=== PATIENT | female | born 1990 | race Caucasian/White ===

== ENCOUNTER 2016-05-31 10:30 | Day surgery (SDC) | payer MEDICAID, OTHER ==
[2016-05-31] MEDS ORDERED: SCOPOLAMINE PATCH TOP ONE (10:42)
[2016-05-31] MEDS ORDERED: CELECOXIB 100 MG CAPSULE PO ONE (10:43)
[2016-05-31] MEDS ORDERED: LACTATED RINGERS 1,000 ML IV ONE ×2 (10:57→15:36)
[2016-05-31] MEDS ORDERED: PROPOFOL 200 MG/20 ML VIAL IVP ONE (15:30)
[2016-05-31] MEDS ORDERED: fentaNYL 100 MCG/2 ML VIAL IVP ONE (15:30)
[2016-05-31] MEDS ORDERED: ROCURONIUM 50 MG/5 ML VIAL IVP ONE (15:30)
[2016-05-31] MEDS ORDERED: ONDANSETRON 4 MG/2 ML VIAL IVP ONE (15:30)
[2016-05-31] MEDS ORDERED: NALOXONE 0.4 MG/ML VIAL IVP ONE (15:30)
[2016-05-31] MEDS ORDERED: DEXAMETHASONE 4 MG/ML VIAL IVP ONE (15:30)
[2016-05-31] MEDS ORDERED: MIDAZOLAM 2 MG/2 ML VIAL IVP ONE (15:30)
[2016-05-31] MEDS ORDERED: BUPIVACAINE 0.25%-EPI 1:200000 PF 30 ML VIAL SUBQ ONE (15:42)
[2016-05-31] MEDS: fentaNYL 100 MCG/2 ML VIAL ONE ×3 (16:22→16:34)
[2016-05-31] MEDS ORDERED: HYDROcod/ACETAM 5/325 MG TABLET ONE (17:16)
== END 2016-05-31 10:31 | disposition home or self-care (01) ==
PROC: 0UT74ZZ Resection of Bilateral Fallopian Tubes, Percutaneous Endoscopic Approach (ICD-10-PCS; principal; 2016-05-31 11:25)
DX: Z30.2 Encounter for sterilization (principal); Z91.040 Latex allergy status; Z80.3 Family history of malignant neoplasm of breast
CPT/HCPCS: 58661; 81025; A9270; J3490; J7120

== ENCOUNTER 2018-09-25 11:40 | Outpatient (CLI) | payer MEDICAID ==
[2018-09-25 13:36] LABS: H. PYLORIS ANTIGEN STL NEGATIVE (Negative)
== END 2018-09-25 23:59 | disposition home or self-care (01) ==
LOC: LAB.R 11:40
PROVIDERS: ATTEND Physician Assistant Medical
DX: K21.9 Gastro-esophageal reflux disease without esophagitis (principal)
CPT/HCPCS: 87338

== ENCOUNTER 2018-09-25 12:05 | Outpatient (CLI) | payer MEDICAID, OTHER ==
[2018-09-25 12:31] LABS: BASOPHILS % (AUTO) 0.8 %; EOSINOPHILS # (AUTO) 0.1 10^3/uL (0.0-0.7); EOSINOPHILS % (AUTO) 1.7 %; HGB - HEMOGLOBIN 14.6 g/dL (12.0-16.0); LYMPHOCYTES # (AUTO) 2.2 10^3/uL (1.5-3.5); LYMPHOCYTES % (AUTO) 34.9 %; MEAN CORPUSCULAR HEMOGLOBIN 29.7 pg (27.0-31.0); MEAN CORPUSCULAR HGB CONC 33.9 g/dL (32.0-36.0); MEAN CORPUSCULAR VOLUME 87.5 fL (81.0-99.0); MEAN PLATELET VOLUME 9.8 fL (7.9-10.8); MONOCYTES # (AUTO) 0.4 10^3/uL (0.0-1.0); MONOCYTES % (AUTO) 6.6 %; NEUTROPHILS # (AUTO) 3.5 10^3/uL (1.5-6.6); PLT - PLATELET COUNT 134 10^3/uL (130-450); RED BLOOD COUNT 4.91 10^6/uL (4.20-5.40); RED CELL DISTRIBUTION WIDTH 13.8 % (12.0-15.0); WHITE BLOOD COUNT 6.3 x10^3/uL (4.8-10.8)
[2018-09-25 13:30] LABS: ALBUMIN/GLOBULIN RATIO 1.3 (1.0-2.2); BILIRUBIN,TOTAL 0.6 mg/dL (0.2-1.0); CALCIUM 8.6 mg/dL (8.5-10.3); CREATININE 0.8 mg/dL (0.4-1.0); TOTAL PROTEIN 7.1 g/dL (6.7-8.2)
== END 2018-09-25 12:06 | disposition home or self-care (01) ==
LOC: LAB 12:05
PROVIDERS: ATTEND Physician Assistant Medical
DX: K21.9 Gastro-esophageal reflux disease without esophagitis (principal)
CPT/HCPCS: 36415; 80053; 82728; 83690; 85025; 87338

== ENCOUNTER 2018-10-31 16:46 | Outpatient (CLI) | payer MEDICAID | END 2018-10-31 16:47 | disposition home or self-care (01) | LOC: LAB 16:46 | PROVIDERS: ATTEND Physician Assistant Medical | DX: Z00.00 Encounter for general adult medical examination without abnormal findings (principal) | CPT/HCPCS: 36415; 84443 ==

== ENCOUNTER 2018-11-06 18:31 | Emergency (ER) | payer MEDICAID ==
[2018-11-06 18:39] VITALS: BP 132/91
[2018-11-06] MEDS ORDERED: predniSONE 20 MG TABLET PO STA (18:53)
--- NOTE | 2018-11-06 18:55 | ED Physician Documentation ---
PD HPI SKIN - Stated complaint Stated Complaint: ITCHING ALL OVER - Chief complaint Chief Complaint: Wound - History obtained from History obtained from: Patient - History of Present Illness Timing - onset: Today Timing - duration: Days (1) Timing - details: Gradual onset Pain level max: 0 Pain level now: 0 Location: Bodywide Quality / character: Itchy Improved by: Benadryl Worsened by (comment): COMMENT (nothing) Associated symptoms: No: Fever, Myalgias, Joint pain, Headache, Facial swelling, Dyspnea, Abd pain, N/V/D, Urinary sx Contributing factors: Unknown. No: Exposed to medication, Exposed to food, Exposed to soap / lotion, Exposed to Poison yumiko/oak, Insect bite /sting, Recent illness Recently seen: Not recently seen Review of Systems Constitutional: denies: Fever, Chills GI: denies: Vomiting, Diarrhea Skin: denies: Rash Musculoskeletal: denies: Neck pain, Back pain Neurologic: denies: Headache PD PAST MEDICAL HISTORY - Past Medical History Cardiovascular: None Respiratory: None Endocrine/Autoimmune: Other GI: None : None HEENT: None Psych: Anxiety Musculoskeletal: None Derm: None - Past Surgical History Past Surgical History: No - Present Medications Home Medications: Ambulatory Orders Medication Instructions Recorded Confirmed Acetaminophen [Pain Relief] 1,000 mg PO ONCE 05/31/16 05/31/16 Cetirizine [ZyrTEC] 10 mg PO DAILY PRN #30 tablet 11/06/18 predniSONE [Deltasone] 10 mg PO [id number] #42 tab 11/06/18 - Allergies Allergies/Adverse Reactions: Allergies Allergy/AdvReac Type Severity Reaction Status Date / Time Latex, Natural Rubber Allergy Rash Verified 11/06/18 18:39 - Social History Does the pt smoke?: No Smoking Status: Never smoker Does the pt drink ETOH?: No Does the pt have substance abuse?: No - Immunizations Immunizations are current?: Yes - POLST Patient has POLST: No PD ED PE NORMAL - Vitals Vital signs reviewed: Yes - General General: Alert and oriented X 3, No acute distress, Well developed/nourished - Neck Neck: Supple, no meningeal sign - Cardiac Cardiac: RRR - Respiratory Respiratory: No respiratory distress, Clear bilaterally - Derm Derm: Warm and dry, Other (Diffuse maculopapular exanthem patches. Some on the legs, some on the arms. No vesicles. No pustules. No tracts.) - Extremities Extremities: No edema - Neuro Neuro: Alert and oriented X 3 - Psych Psych: Normal mood, Normal affect Results - Vitals Vitals: Oxygen O2 Source Room air PD MEDICAL DECISION MAKING - ED course Complexity details: reviewed old records, considered differential, d/w patient ED course: Patient with what appears to be a dermatitis of unclear etiology. Will trial on steroids and see how she progresses. We will follow-up with her doctor for further care. I did check on her recent thyroid results per her request and those are normal. Patient counseled regarding signs and symptoms for which I believe and urgent re-evaluation would be necessary. Patient with good understanding of and agreement to plan and is comfortable going home at this time This document was made in part using voice recognition software. While efforts are made to proofread this document, sound alike and grammatical errors may occur. Departure - Departure Disposition: 01 Home, Self Care Clinical Impression: Dermatitis Condition: Good Instructions: ED Dermatitis Non Specific Rash Follow-Up: Zoraida Palm PA-C [Primary Care Provider] - Within 1 week Prescriptions: Cetirizine [ZyrTEC] 10 mg PO DAILY PRN #30 tablet PRN Reason: Allergy Symptoms predniSONE [Deltasone] 10 mg PO [id number] #42 tab Comments: The cause of your symptoms is unclear. Return if you worsen. Follow-up with your doctor for further care. Your thyroid tests were normal from last week. Discharge Date/Time: 11/06/18 19:10
== END 2018-11-06 19:10 | disposition home or self-care (01) ==
LOC: ED 18:31
DX: L30.9 Dermatitis, unspecified (principal)
CPT/HCPCS: 99283; J7512

== ENCOUNTER 2019-01-29 17:50 | Outpatient (CLI) | payer MEDICAID | END 2019-01-29 17:51 | disposition home or self-care (01) | LOC: LAB 17:50 | PROVIDERS: ATTEND Physician Assistant Medical | DX: E03.9 Hypothyroidism, unspecified (principal) | CPT/HCPCS: 36415; 84443 ==

== ENCOUNTER 2019-04-24 08:00 | Outpatient (CLI) | payer MEDICAID | END 2019-04-24 23:59 | disposition home or self-care (01) | LOC: LAB.WCP 08:00 | PROVIDERS: ATTEND Physician Assistant Medical | DX: E03.9 Hypothyroidism, unspecified (principal) | CPT/HCPCS: 36415; 84443 ==

== ENCOUNTER 2019-05-05 16:30 | Outpatient (CLI) | payer MEDICAID | END 2019-05-05 23:59 | disposition home or self-care (01) | LOC: LAB.R 16:30 | PROVIDERS: ATTEND Physician Assistant Medical | DX: R30.0 Dysuria (principal) | CPT/HCPCS: 87077; 87086 ==

== ENCOUNTER 2021-04-13 08:00 | Outpatient (CLI) | payer MEDICAID | END 2021-04-13 23:59 | disposition home or self-care (01) | LOC: LAB.N 08:00 | PROVIDERS: ATTEND Family Medicine | DX: N39.0 Urinary tract infection, site not specified (principal) | CPT/HCPCS: 87086; 87181 ==

== ENCOUNTER 2021-08-11 11:17 | Outpatient (CLI) | payer MEDICAID ==
[2021-08-11 11:34] LABS: BASOPHILS # (AUTO) 0.1 10^3/uL (0.0-0.1); BASOPHILS % (AUTO) 1.1 %; EOSINOPHILS # (AUTO) 0.1 10^3/uL (0.0-0.7); EOSINOPHILS % (AUTO) 1.2 %; HCT - HEMATOCRIT 42.9 % (37.0-47.0); HGB - HEMOGLOBIN 14.7 g/dL (12.0-16.0); LYMPHOCYTES # (AUTO) 2.8 10^3/uL (1.5-3.5); LYMPHOCYTES % (AUTO) 41.3 %; MEAN CORPUSCULAR HEMOGLOBIN 30.1 pg (27.0-31.0); MEAN CORPUSCULAR HGB CONC 34.3 g/dL (32.0-36.0); MEAN CORPUSCULAR VOLUME 87.7 fL (81.0-99.0); MEAN PLATELET VOLUME 11.7 fL (7.9-10.8); MONOCYTES # (AUTO) 0.6 10^3/uL (0.0-1.0); MONOCYTES % (AUTO) 8.4 %; NEUTROPHILS # (AUTO) 3.2 10^3/uL (1.5-6.6); NEUTROPHILS % (AUTO) 47.7 %; PLT - PLATELET COUNT 145 10^3/uL (130-450); RED BLOOD COUNT 4.89 10^6/uL (4.20-5.40); RED CELL DISTRIBUTION WIDTH 13.2 % (12.0-15.0); WHITE BLOOD COUNT 6.7 x10^3/uL (4.8-10.8)
[2021-08-11 11:58] LABS: ALBUMIN 4.3 g/dL (3.2-5.5); ALBUMIN/GLOBULIN RATIO 1.3 (1.0-2.2); BILIRUBIN,TOTAL 0.6 mg/dL (0.2-1.0); CALCIUM 8.8 mg/dL (8.5-10.3); CREATININE 0.7 mg/dL (0.4-1.0); POTASSIUM 4.1 mmol/L (3.5-5.0); TOTAL PROTEIN 7.6 g/dL (6.7-8.2)
[2021-08-11 12:03] LABS: THYROID STIMULATING HORMONE 4.55 uIU/mL (0.34-5.60)
== END 2021-08-11 11:18 | disposition home or self-care (01) ==
LOC: LAB 11:17
PROVIDERS: ATTEND Physician Assistant Medical
DX: Z00.00 Encounter for general adult medical examination without abnormal findings (principal); E03.9 Hypothyroidism, unspecified
CPT/HCPCS: 36415; 80053; 84443; 85025

== ENCOUNTER 2022-06-25 00:11 | Emergency (ER) | payer MEDICAID ==
--- NOTE | 2022-06-25 00:41 | ED Physician Documentation ---
PD HPI ABD PAIN - Stated complaint Stated Complaint: ABD/BACK PX - Chief complaint Chief Complaint: Abd Pain - History obtained from History obtained from: Patient - History of Present Illness Timing - onset: How many days ago (2) Timing - duration: Days (2) Timing - details: Gradual onset, Still present, Waxing and waning Quality: Aching, Pain Location: Epigastric Radiation: Chest Improved by: No: Laying still Worsened by: Eating. No: Moving Associated symptoms: Nausea. No: Fever, Vomiting, Diarrhea, Constipation, Melena Recently seen: Clinic (for these symptoms and Dx with likely gastritis, rx Prevacid, but no other meds.) Review of Systems Constitutional: denies: Fever, Chills Nose: denies: Rhinorrhea / runny nose, Congestion Throat: denies: Sore throat Respiratory: denies: Cough GI: reports: Abdominal Pain, Nausea. denies: Vomiting, Diarrhea, Bloody / black stool Neurologic: denies: Generalized weakness PD PAST MEDICAL HISTORY - Past Medical History Cardiovascular: None Respiratory: None Endocrine/Autoimmune: Other GI: None : None HEENT: None Psych: Anxiety Musculoskeletal: None Derm: None - Past Surgical History Past Surgical History: No - Present Medications Home Medications: Ambulatory Orders Medication Instructions Recorded Confirmed Acetaminophen [Pain Relief] 1,000 mg PO ONCE 05/31/16 05/31/16 Cetirizine [ZyrTEC] 10 mg PO DAILY PRN #30 tablet 11/06/18 predniSONE [Deltasone] 10 mg PO [id number] #42 tab 11/06/18 Lidocaine Viscous 2% [Xylocaine 5 ml PO Q4H PRN #100 ml 06/25/22 Viscous 2%] Ondansetron Odt [Zofran] 4 mg TL Q6H PRN #15 tablet 06/25/22 Sucralfate [Carafate] 1 gm PO ACHS #40 tablet 06/25/22 - Allergies Allergies/Adverse Reactions: Allergies Allergy/AdvReac Type Severity Reaction Status Date / Time Latex, Natural Rubber Allergy Rash Verified 06/25/22 00:28 - Social History Does the pt smoke?: No Smoking Status: Never smoker Does the pt drink ETOH?: No Does the pt have substance abuse?: No - Immunizations Immunizations are current?: Yes - POLST Patient has POLST: No PD ED PE NORMAL - Vitals Vital signs reviewed: Yes - General General: Alert and oriented X 3, No acute distress, Well developed/nourished - HEENT HEENT: Pharynx benign - Neck Neck: Supple, no meningeal sign, No adenopathy - Cardiac Cardiac: RRR, No murmur - Respiratory Respiratory: Clear bilaterally - Abdomen Abdomen: Normal bowel sounds, Soft, Non distended, No organomegaly, Other (tender epigastric without guarding nor percussion tenderness. ) - Derm Derm: Normal color, Warm and dry - Extremities Extremities: No edema, No calf tenderness / cord - Neuro Neuro: Alert and oriented X 3 Results - Vitals Vitals: Vital Signs - 24 hr 06/25/22 06/25/22 06/25/22 00:24 01:00 02:33 Temperature 36.9 C Heart Rate 104 H 97 81 Respiratory 18 16 Rate Blood Pressure 147/103 H 124/105 H 118/86 H O2 Saturation 97 96 97 Oxygen O2 Source Room air - Labs Labs: Laboratory Tests 06/25/22 06/25/22 01:09 01:09 WBC 8.0 RBC 4.86 Hgb 14.6 Hct 42.7 MCV 87.9 MCH 30.0 MCHC 34.2 RDW 13.6 Plt Count 163 MPV 11.8 H Neut # (Auto) 4.9 Lymph # (Auto) 2.0 Motley # (Auto) 0.9 Eos # (Auto) 0.2 Baso # (Auto) 0.0 Absolute Nucleated RBC 0.00 Nucleated RBC % 0.0 Sodium 138 Potassium 3.4 L Chloride 106 Carbon Dioxide 23 Anion Gap 9.0 BUN 13 Creatinine 0.8 Estimated GFR (MDRD) 84 L Glucose 121 H Calcium 9.2 Total Bilirubin 0.6 AST 22 ALT 29 Alkaline Phosphatase 43 Total Protein 7.5 Albumin 4.0 Globulin 3.5 Albumin/Globulin Ratio 1.1 Lipase 34 PD Medical Decision Making - ED course Complexity details: reviewed results, re-evaluated patient (we did not have viscous lido in stock in er. Mylanta did provide some improvement. Normal labs and beside U/S so not apparent pancreatic nor gb. ), considered differential, d/w patient Reviewed Lab Results: normal lipase and LFTs. Bedside U/S by me showed normal appearing gb without stones nor wall thickening. I did not feel need for formal U/S nor CT. Presume gastritis/ulcer as cause. Departure - Departure Disposition: 01 Home, Self Care Clinical Impression: Epigastric pain Condition: Stable Record reviewed to determine appropriate education?: Yes Instructions: ED Epigastric Pain [facility] Follow-Up: Zoraida Palm PA-C [Provider Admit Priv/Credential] - [facility] [Provider Group] Prescriptions: Sucralfate [Carafate] 1 gm PO ACHS #40 tablet Lidocaine Viscous 2% [Xylocaine Viscous 2%] 5 ml PO Q4H PRN #100 ml PRN Reason: Pain Ondansetron Odt [Zofran] 4 mg TL Q6H PRN #15 tablet PRN Reason: Nausea / Vomiting Comments: Your blood tests are normal with regard to no signs of inflammation of the pancreas or liver. A brief bedside ultrasound of the gallbladder showed it to have a normal appearance without any stones or wall thickening or fluid around it. Your blood counts and electrolytes are otherwise normal. At this point it would seem that your pain is most likely from an irritation of the stomach or first part of the intestine (duodenum). This can be a general irritation (gastritis) versus a local erosion (ulcer). They would be treated similarly with acid reducing medicine and also medication to coat the stomach and to help with symptoms. Continue with your lansoprazole and add sacral fate 3-4 times daily. You can also use antacid such as Maalox or Mylanta combined with the lidocaine viscus to help with symptoms. Add Tylenol every 4-6 hours if needed. Avoid NSAIDs such as ibuprofen or naproxen as well as avoid caffeine, alcohol, very spicy foods. I would anticipate this improving over the next few days and resolving over 3 to 5 days for the most part. We did send you home with some nausea medicine ondansetron if needed for nausea and several opioid pain pills of hydrocodone to use every 6 hours if needed for worse pain in the short-term. I sent your prescriptions to the [facility] pharmacy. Follow-up with your primary care later this week, call for follow-up time. Return to ED if any worsening symptoms over the next few days. Otherwise follow-up could also be with the surgical clinic to decide if a upper endoscopy to look at the stomach is warranted. This would be if it does not improve well with the above medication. Discharge Date/Time: 06/25/22 03:18
[2022-06-25] MEDS ORDERED: ONDANSETRON 4 MG/2 ML VIAL IVP STA (00:55)
[2022-06-25] MEDS ORDERED: FAMOTIDINE 20 MG/2 ML VIAL IVP STA (00:56)
[2022-06-25] MEDS ORDERED: LIDOCAINE VISCOUS 2% 15 ML ORAL SYRINGE MM STA (00:56)
[2022-06-25] MEDS ORDERED: MAG HYDROX/AL HYDROX/SIMETH 30 ML UDC PO STA (00:56)
[2022-06-25 01:19] LABS: BASOPHILS % (AUTO) 0.5 %; EOSINOPHILS # (AUTO) 0.2 10^3/uL (0.0-0.7); EOSINOPHILS % (AUTO) 2.5 %; HCT - HEMATOCRIT 42.7 % (37.0-47.0); HGB - HEMOGLOBIN 14.6 g/dL (12.0-16.0); LYMPHOCYTES % (AUTO) 25.3 %; MEAN CORPUSCULAR HGB CONC 34.2 g/dL (32.0-36.0); MEAN CORPUSCULAR VOLUME 87.9 fL (81.0-99.0); MEAN PLATELET VOLUME 11.8 fL (7.9-10.8); MONOCYTES # (AUTO) 0.9 10^3/uL (0.0-1.0); MONOCYTES % (AUTO) 11.1 %; NEUTROPHILS # (AUTO) 4.9 10^3/uL (1.5-6.6); NEUTROPHILS % (AUTO) 60.4 %; PLT - PLATELET COUNT 163 10^3/uL (130-450); RED BLOOD COUNT 4.86 10^6/uL (4.20-5.40); RED CELL DISTRIBUTION WIDTH 13.6 % (12.0-15.0)
[2022-06-25 01:28] LABS: ALBUMIN/GLOBULIN RATIO 1.1 (1.0-2.2); BILIRUBIN,TOTAL 0.6 mg/dL (0.2-1.0); CALCIUM 9.2 mg/dL (8.5-10.3); CREATININE 0.8 mg/dL (0.4-1.0); POTASSIUM 3.4 mmol/L (3.5-5.0); TOTAL PROTEIN 7.5 g/dL (6.7-8.2)
[2022-06-25] MEDS ORDERED: SUCRALFATE 1 GM/10 ML UDC PO STA (02:31)
[2022-06-25] MEDS ORDERED: HYDROcod/ACET 5/325 Prepack 4 PO STA (02:31)
[2022-06-25] MEDS ORDERED: ONDANSETRON ODT 4 MG Prepack 2 TL PRN (02:31)
[2022-06-25 02:34] VITALS: BP 118/86
== END 2022-06-25 03:18 | disposition home or self-care (01) ==
LOC: ED 00:11
DX: R10.13 Epigastric pain (principal)
CPT/HCPCS: 36415; 80053; 83690; 85025; 96374; 96375; 99284; A9270

== ENCOUNTER 2022-07-26 10:23 | Outpatient (CLI) | payer MEDICAID | END 2022-07-26 10:24 | disposition home or self-care (01) | LOC: LAB.N 10:23 | PROVIDERS: ATTEND Physician Assistant Medical | DX: Z71.89 Other specified counseling (principal) | CPT/HCPCS: 81599; 86480 ==

== ENCOUNTER 2023-09-21 09:37 | Emergency (ER) | payer MEDICAID, OTHER ==
[2023-09-21 09:47] VITALS: O2SAT 96
--- NOTE | 2023-09-21 11:27 | ED Physician Documentation ---
PD HPI LOWER EXT INJURY - Stated complaint Stated Complaint: LT LEG INJ - Chief complaint Chief Complaint: Ext Problem - Additional information Additional information: 32-year-old female presents emergency department for left knee pain. Patient reports that she was trimming an apple tree yesterday she somehow lost her balance as she is twisting she heard a very loud popping sensation to the left knee and experienced immediate pain. Patient reports most of her pain is to the posterior knee and wraps below both sides. She feels like her knee is very unstable and she is having a hard time standing on it due to the severity of the pain. Patient reports when she stands on it feels like a wet noodle. She has never had any injuries in the past. 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 - Present Medications Home Medications: Ambulatory Orders Medication Instructions Recorded Confirmed Acetaminophen [Pain Relief] 1,000 mg PO ONCE 05/31/16 05/31/16 Cetirizine [ZyrTEC] 10 mg PO DAILY PRN #30 tablet 11/06/18 predniSONE [Deltasone] 10 mg PO [id number] #42 tab 11/06/18 Lidocaine Viscous 2% [Xylocaine 5 ml PO Q4H PRN #100 ml 06/25/22 Viscous 2%] Ondansetron Odt [Zofran] 4 mg TL Q6H PRN #15 tablet 06/25/22 Sucralfate [Carafate] 1 gm PO ACHS #40 tablet 06/25/22 - Allergies Allergies/Adverse Reactions: Allergies Allergy/AdvReac Type Severity Reaction Status Date / Time Latex, Natural Rubber Allergy Rash Verified 09/21/23 09:46 - Social History Does the pt smoke?: No Smoking Status: Never smoker Does the pt drink ETOH?: No Does the pt have substance abuse?: No - Immunizations Immunizations are current?: Yes - POLST Patient has POLST: No PD ED PE NORMAL - Vitals Vital signs reviewed: Yes - General General: Alert and oriented X 3, No acute distress, Well developed/nourished - Extremities Extremities: Other (Left knee: Tenderness palpation to the medial aspect of the knee as well as the posterior aspect of the knee. Tenderness with extension no tenderness with flexion. There is any effusion to the anterior lateral portion of the knee. No patella tenderness patella mobile) - Psych Psych: Normal mood, Normal affect Results - Vitals Vitals: Vital Signs - 24 hr 09/21/23 09/21/23 09:44 12:33 Temperature 36.2 C L 36.7 C Heart Rate 94 84 Respiratory 16 18 Rate Blood Pressure 149/92 H 130/83 H O2 Saturation 96 96 Oxygen O2 Source Room air - Rads (name of study) Left knee x-ray Relevant Findings:: Final report received, EMP independent interpretation of test, Other (Small knee joint effusion. No acute osseous abnormalities. No obvious fractures or dislocations.) PD Medical Decision Making - ED course ED course: 32-year-old female presents emergency department for left knee pain. Differentials include but are not limited to fracture, patellar dislocation, partial or complete ligament tear. X-rays are complete which revealed a knee effusion but no obvious fractures at this point in time. Given that patient said that she is feeling like her knee was in stable unstable we went ahead and placed patient in a knee immobilizer. Most of her pain is to the medial aspect of her knee she has no patella tenderness I do not believe that she had a patella dislocation I also feel quite confident that she did not experience any dislocation given the mechanism of injury. She was offered pain medications but declined she said that Tylenol ibuprofen have been working well for her she came in with crutches so she does not need additional crutches and knee immobilizer as patient patient's left knee and she is told to follow-up with orthopedic surgeon outpatient for further evaluation as well as her primary care provider for possible physical therapy referral. All questions answered and return precautions have been given. Departure - Departure Disposition: 01 Home, Self Care Clinical Impression: Medial collateral ligament sprain of knee Qualifiers: Encounter type: initial encounter Laterality: left Qualified Code(s): S83.412A - Sprain of medial collateral ligament of left knee, initial encounter Instructions: ED Sprain Knee, ED Sprain Knee Collateral Ligaments Follow-Up: [facility] [Provider Group] Comments: Thank you for trusting us with your care. I believe that you are experiencing pain from either a sprain or a ligament tear. As we discussed you will need more advanced imaging for this and said follow-up with orthopedic surgeon outpatient. I have placed the contact information for [facility] on your discharge paperwork I would call them today to see when you are able to get in with them soon as possible. You can take 1000 mg of Tylenol every 8 hours and 600 to 800 mg of ibuprofen every 6 hours for pain and discomfort. Ice for 20 minutes at a time 1 hour off keep knee immobilizer on to help with any instability and use crutches for now I would not do any weightbearing activities until you are able to follow-up with orthopedic doctor outpatient. Please come back to the emergency department if pain is getting severely worse and you are unable to deal with the pain at home with Tylenol ibuprofen or if you have any concerning worsening symptoms. Wishing you a speedy recovery. Forms: PCP List Discharge Date/Time: 09/21/23 12:33
--- NOTE | 2023-09-21 11:53 | XRAY Report ---
PROCEDURE: Knee 3V LT INDICATIONS: left knee pain and weakness after GLF TECHNIQUE: 3 views of the knee(s) were acquired. COMPARISON: None. FINDINGS: Bones: No high-grade degenerative changes. No acute displaced fracture or dislocation. Soft tissues: Possible small knee joint effusion. IMPRESSION: Possible small knee joint effusion. No acute osseous abnormality. If there is high concern for occult injury, consider repeat radiography or cross-sectional imaging. Reviewed by: Doc Saini MD on 09/21/2023 11:51 AM PDT Approved by: Doc Saini MD on 09/21/2023 11:51 AM PDT Station ID: [id number]
[2023-09-21 12:35] VITALS: BP 130/83
== END 2023-09-21 12:33 | disposition home or self-care (01) ==
LOC: ED 09:37
DX: S83.412A Sprain of medial collateral ligament of left knee, initial encounter (principal); W18.39XA Other fall on same level, initial encounter; Y93.H2 Activity, gardening and landscaping
CPT/HCPCS: 99283; 99284

== ENCOUNTER 2023-09-28 14:06 | Outpatient (CLI) | payer MEDICAID ==
--- NOTE | 2023-09-28 14:42 | XRAY Report ---
PROCEDURE: Knee 4+V LT INDICATIONS: PAIN IN LEFT KNEE TECHNIQUE: 4 views of the knee(s) were acquired. COMPARISON: X-ray knee 09/21/2023 FINDINGS: Bones: No fractures or dislocations. No suspicious bony lesions. Soft tissues: No knee joint effusion. No suspicious soft tissue calcifications or masses. IMPRESSION: No visualized fracture. If concern persists, MRI or CT is recommended. Reviewed by: Malika Quiroz MD on 09/28/2023 2:41 PM PDT Approved by: Malika Quiroz MD on 09/28/2023 2:41 PM PDT Station ID: [id number]
== END 2023-09-28 14:07 | disposition home or self-care (01) ==
LOC: DI.N 14:06
PROVIDERS: ATTEND Physician Assistant Surgical
DX: M25.562 Pain in left knee (principal)

== ENCOUNTER 2023-10-15 12:42 | Outpatient (CLI) | payer MEDICAID ==
--- NOTE | 2023-10-15 20:43 | MRI Report ---
PROCEDURE: Knee LT WO INDICATIONS: INTERNAL DERANGEMENT TECHNIQUE: Noncontrast sagittal PD fast spin echo and T2 fast spin echo with fat saturation, sagittal 3-D gradie nt sequence with fat saturation; coronal T1 spin echo and PD fast spin echo with fat saturation, and axial PD fast spin echo with fat saturation through the knee. COMPARISON: Left knee radiograph dated 09/28/2023, 09/21/2023. FINDINGS: Image quality: Excellent. Menisci: The medial and lateral menisci demonstrate normal morphology and internal signal. The meni scal root ligaments appear intact. Cruciate ligaments: There is full-thickness rupture of ACL near its midportion. The PCL is intact. Medial structures: The medial collateral ligament appears intact. The posterior oblique ligament, s emimembranosus tendon insertions, and oblique popliteal ligament, and meniscocapsular junction appear intact. Visualized portions of the pes anserinus tendons appear normal. No abnormal bursal fluid. Lateral structures: The lateral collateral ligament is thickened at its femoral insertion. The long and short heads of the biceps femoris tendon appear intact. The popliteus tendon appears normal.. I liotibial band appears normal. Anterior structures: The quadriceps and patellar tendons appear intact. Patellar alignment is gino l. No femoral trochlear dysplasia or ventral trochlear prominence. No edema in the infrapatellar fa t pad. Bones and cartilage: Marrow edema involving weightbearing portion of lateral femoral condyle and post erior aspect of proximal tibia extending to posterior periphery of medial and lateral tibial plateau is seen without definite fracture line. Joint space: There is moderate knee joint fluid. There is a small Lima's cyst. Normal appearing sy novial plicae are incidentally noted. IMPRESSION: 1. Full-thickness rupture of ACL near its midportion. The PCL is intact. 2. Bony contusion involving posterior aspect of proximal tibia and weightbearing portion of lateral f emoral condyle. No fracture or dislocation. 3. No evidence of focal meniscal tear. 4. Low-grade proximal LCL sprain/partial thickness tear. 5. Moderate joint effusion, no loose bodies. Small popliteal cyst. Reviewed by: Pawel Hyman MD on 10/15/2023 8:41 PM PDT Approved by: Pawel Hyman MD on 10/15/2023 8:41 PM PDT Station ID: [id number]
== END 2023-10-15 12:43 | disposition home or self-care (01) ==
LOC: DI 12:42
PROVIDERS: ATTEND Physician Assistant Surgical
DX: S83.512A Sprain of anterior cruciate ligament of left knee, initial encounter (principal); S80.12XA Contusion of left lower leg, initial encounter; S83.422A Sprain of lateral collateral ligament of left knee, initial encounter; M25.462 Effusion, left knee; M71.22 Synovial cyst of popliteal space [Baker], left knee

== ENCOUNTER 2023-12-28 14:24 | Outpatient (CLI) | payer MEDICAID ==
[2023-12-28 14:48] LABS: H. PYLORIS ANTIGEN STL NEGATIVE (Negative)
== END 2023-12-28 14:25 | disposition home or self-care (01) ==
LOC: LAB.R 14:24
PROVIDERS: ATTEND Physician Assistant Medical
DX: K21.9 Gastro-esophageal reflux disease without esophagitis (principal)
CPT/HCPCS: 87338

== ENCOUNTER 2024-01-17 09:03 | Outpatient (CLI) | payer MEDICAID ==
--- NOTE | 2024-01-17 21:11 | Ultrasound Report ---
PROCEDURE: Abdomen Limited INDICATIONS: GERD TECHNIQUE: Real-time focused scanning was performed of the abdomen, with image documentation. COMPARISONS: None. FINDINGS: Liver: Liver is normal in size and increase in echogenicity. Gallbladder: No gallstones, sludge, wall thickening or pericholecystic edema. Biliary ducts: Intrahepatic bile ducts are non-dilated. Extrahepatic bile duct caliber measures 4.5 mm. Normal is 6-7 mm or less in diameter, or 10 mm or less post-cholecystectomy. Pancreas: Visualized portions of the pancreas are sonographically normal. Tail is not well seen. Right kidney: Normal in size and echotexture. Right kidney measures 10.0 cm long. No hydronephrosis or nephrolithiasis. No solid masses. No complex renal cystic lesions which require follow-up. Miscellaneous: No free abdominal fluid. IMPRESSION: No cause for patient's symptoms is identified. Liver is increased in echogenicity, most consistent wi th hepatic steatosis. Reviewed by: Kvng Hannon MD on 01/17/2024 9:10 PM PDT Approved by: Kvng Hannon MD on 01/17/2024 9:10 PM PDT Station ID: [id number]
== END 2024-01-17 09:04 | disposition home or self-care (01) ==
LOC: DI 09:03
PROVIDERS: ATTEND Physician Assistant Medical
DX: K21.9 Gastro-esophageal reflux disease without esophagitis (principal)